=== PATIENT | male | born 1970 | race Caucasian/White ===

== ENCOUNTER 2023-10-22 15:26 | Emergency (ER) | payer OTHER ==
[~2023-10-22] VITALS: Ht 175.3 cm; Wt 102.0 kg
[~2023-10-22 15:26] MED LIST: AUGMENTIN875TAB PO; Blood Pressure Med; FLONASE NASAL50 MCG; MULTI VIT OR
[2023-10-22 15:56] VITALS: BP 158/103
[2023-10-22 16:01] VITALS: BP 173/98
[2023-10-22 16:31] VITALS: BP 148/87
[2023-10-22 16:51] LABS: BASO% 0.6 % (0-3); EOS% 0.6 % (0-8); HEMOGLOBIN 14.3 g/dl (14.0-18.0); IMMATURE GRANULOCYTES 0.1 % (0.0-5.0); LYMPH% 24.3 % (15-41); MONO% 5.9 % (2-13); NEUT# 4.65 thou/uL (1.82-7.42); NEUT% 68.5 % (42-76); RED BLOOD COUNT 4.33 mill/uL (4.70-6.10); RED CELL DISTRI WIDTH 12.4 % (11.5-15.5)
[2023-10-22 17:01] VITALS: BP 161/103
[2023-10-22 17:06] LABS: ALKALINE PHOSPHATASE 128 u/l (38-126); BUN 10 mg/dL (9-20); BUN/CREATININE RATIO 12 (12-20 (CALC)); CHLORIDE 105 mmol/l (95-108); CREATININE 0.8 mg/dL (0.7-1.3); GFR FOR AFR.AMER. > 60 ML/MIN (>=60 (CALC)); GFR OTHER RACES > 60 ML/MIN (>=60 (CALC)); SGOT/AST 59 u/l (17-59); SODIUM 138 mmol/l (137-146); TOTAL PROTEIN 8.1 g/dL (6.3-8.2)
[2023-10-22 17:16] LABS: ALBUMIN 3.9 g/dL (3.2-5.0); ANION GAP 20 (6-22 (CALC)); BILIRUBIN, TOTAL 0.8 mg/dL (0.2-1.3); CARBON DIOXIDE 17 mmol/l (22-30); POTASSIUM 3.5 mmol/l (3.5-5.1)
[2023-10-22 17:31] VITALS: BP 172/114
[2023-10-22 20:26] VITALS: BP 172/114
== END 2023-10-22 20:34 | disposition home or self-care (01) | DRG 204 ==
LOC: ED 15:26
PROVIDERS: Nurse Practitioner
DX: R07.81 Pleurodynia (principal); K74.60 Unspecified cirrhosis of liver; R16.2 Hepatomegaly with splenomegaly, not elsewhere classified; I10 Essential (primary) hypertension; Z20.822 Contact with and (suspected) exposure to COVID-19
CPT/HCPCS: Q9967

== ENCOUNTER 2023-11-26 10:12 | Day surgery (SDC) | payer OTHER ==
[~2023-11-26] VITALS: Ht 177.8 cm; Wt 106.6 kg
[~2023-11-26 10:12] MED LIST changes: +AMLODIPINE BESYL5 MG PO
[2023-11-26 13:24] VITALS: BP 146/88
== END 2023-11-26 13:21 | disposition home or self-care (01) | DRG 433 ==
LOC: ENDO 10:12 → ORM 11:35 → ENDO 13:21 → ORM 13:25 → ENDO 13:25 → ORM 14:00
PROVIDERS: ATTEND Internal Medicine Gastroenterology
PROC: 0DB48ZX Excision of Esophagogastric Junction, Via Natural or Artificial Opening Endoscopic, Diagnostic (ICD-10-PCS; principal; 2023-11-26)
PROC: 0DB78ZX Excision of Stomach, Pylorus, Via Natural or Artificial Opening Endoscopic, Diagnostic (ICD-10-PCS; 2023-11-26)
DX: K70.30 Alcoholic cirrhosis of liver without ascites (principal); K76.6 Portal hypertension; K31.89 Other diseases of stomach and duodenum; K29.50 Unspecified chronic gastritis without bleeding; I10 Essential (primary) hypertension